=== PATIENT | male | born 1995 | race Native Hawaiian/Other Pacific Islander ===

== ENCOUNTER 2017-05-05 13:44 | Emergency (ER) | payer OTHER ==
[~2017-05-05] VITALS: Ht 162.6 cm; Wt 52.6 kg
[2017-05-05 13:51] VITALS: TEMP 98.3
[2017-05-05 16:17] VITALS: BP 128/78
== END 2017-05-05 16:17 | disposition home or self-care (01) ==
LOC: ED 13:44
PROC: 0HQGXZZ Repair Left Hand Skin, External Approach (ICD-10-PCS; principal; 2017-05-05)
DX: S61.215A Laceration without foreign body of left ring finger without damage to nail, initial encounter (principal); W26.0XXA Contact with knife, initial encounter; Y92.69 Other specified industrial and construction area as the place of occurrence of the external cause
CPT/HCPCS: 90471; 90715; 99283

== ENCOUNTER 2017-06-28 15:49 | Emergency (ER) | payer OTHER ==
[~2017-06-28] VITALS: Ht 162.6 cm; Wt 50.8 kg
[2017-06-28 17:49] LABS: PLATELET COUNT 240 K/uL (142-355)
[2017-06-28 18:04] LABS: POTASSIUM 3.6 mmol/L (3.6-5.2); SODIUM 136 mmol/L (136-145)
[2017-06-28 19:30] VITALS: BP 102/61; TEMP 97.9
== END 2017-06-28 19:30 | disposition home or self-care (01) ==
LOC: ED 15:49
PROVIDERS: Family Medicine
DX: K29.70 Gastritis, unspecified, without bleeding (principal); R11.2 Nausea with vomiting, unspecified
CPT/HCPCS: 36415; 80053; 82150; 83036; 83690; 85027; 86318; 96360; 99284

== ENCOUNTER 2017-07-14 12:21 | Outpatient (CLI) | payer OTHER | END 2017-07-14 12:27 | disposition short-term general hospital (02) | LOC: AMB 12:21 | DX: M79.662 Pain in left lower leg (principal); V49.49XA Driver injured in collision with other motor vehicles in traffic accident, initial encounter; Y92.488 Other paved roadways as the place of occurrence of the external cause | CPT/HCPCS: A0425; A0429 ==

== ENCOUNTER 2017-07-14 12:37 | Emergency (ER) | payer OTHER ==
[~2017-07-14] VITALS: Ht 162.6 cm; Wt 51.7 kg
[2017-07-14 12:45] VITALS: TEMP 98.5
[2017-07-14 15:25] VITALS: BP 132/74
== END 2017-07-14 15:26 | disposition home or self-care (01) ==
LOC: ED 12:37
DX: S86.912A Strain of unspecified muscle(s) and tendon(s) at lower leg level, left leg, initial encounter (principal); R51 Headache; V43.52XA Car driver injured in collision with other type car in traffic accident, initial encounter
CPT/HCPCS: 99283

== ENCOUNTER 2017-07-20 22:48 | Outpatient (CLI) | payer OTHER ==
[2017-07-20] MEDS ORDERED: ACID CONTROL20 MG PO (23:17)
[2017-07-20] MEDS ORDERED: BUSPIRONE10 MG PO (23:17)
== END 2017-07-20 22:57 | disposition short-term general hospital (02) ==
LOC: AMB 22:48
DX: F41.8 Other specified anxiety disorders (principal); R00.2 Palpitations; R42 Dizziness and giddiness
CPT/HCPCS: A0425; A0429

== ENCOUNTER 2017-07-20 22:59 | Emergency (ER) | payer OTHER ==
[~2017-07-20] VITALS: Ht 162.6 cm; Wt 52.2 kg
[2017-07-20 23:05] VITALS: TEMP 98.7
[2017-07-20] MEDS ORDERED: ACID CONTROL20 MG PO (23:17)
[2017-07-20] MEDS ORDERED: BUSPIRONE10 MG PO (23:17)
[2017-07-21 00:36] VITALS: BP 115/74
== END 2017-07-21 00:36 | disposition home or self-care (01) ==
LOC: ED 22:59
DX: F41.9 Anxiety disorder, unspecified (principal)
CPT/HCPCS: 96372; 99282; J2060

== ENCOUNTER 2018-06-17 18:57 | Emergency (ER) | payer OTHER ==
[~2018-06-17] VITALS: Ht 162.6 cm; Wt 48.1 kg
[~2018-06-17 18:57] MED LIST: ACID CONTROL20 MG PO; BUSPIRONE10 MG PO
[2018-06-17] MEDS ORDERED: ALPR0.2566 PO (19:15)
[2018-06-17 20:36] LABS: PLATELET COUNT 231 K/uL (142-355)
[2018-06-17 20:45] LABS: POTASSIUM 3.8 mmol/L (3.6-5.2)
[2018-06-17 22:16] VITALS: BP 122/85; TEMP 98.6
== END 2018-06-17 22:20 | disposition home or self-care (01) ==
LOC: ED 18:57
PROVIDERS: Internal Medicine
DX: R10.10 Upper abdominal pain, unspecified (principal); K21.9 Gastro-esophageal reflux disease without esophagitis
CPT/HCPCS: 36415; 80053; 81000; 82150; 83690; 85027; 96372; 99283; J1885; J2405

== ENCOUNTER 2018-06-21 08:17 | Outpatient (CLI) | payer OTHER ==
[~2018-06-21 08:17] MED LIST changes: +ALPR0.2566 PO
== END 2018-06-21 23:34 | disposition home or self-care (01) ==
LOC: RAD 08:17
DX: K52.9 Noninfective gastroenteritis and colitis, unspecified (principal)

== ENCOUNTER 2018-10-23 07:39 | Emergency (ER) | payer OTHER ==
[~2018-10-23] VITALS: Ht 162.6 cm; Wt 48.1 kg
[2018-10-23 07:52] VITALS: TEMP 97.9
[2018-10-23 09:32] VITALS: BP 108/76
== END 2018-10-23 09:32 | disposition home or self-care (01) ==
LOC: ED 07:39
PROC: 0H9QXZZ Drainage of Finger Nail, External Approach (ICD-10-PCS; principal; 2018-10-23)
DX: S60.141A Contusion of right ring finger with damage to nail, initial encounter (principal); W22.8XXA Striking against or struck by other objects, initial encounter
CPT/HCPCS: 99282

== ENCOUNTER 2019-09-26 08:04 | Outpatient (CLI) | payer OTHER | END 2019-09-26 22:42 | disposition home or self-care (01) | LOC: RESP 08:04 | DX: R00.2 Palpitations (principal); R06.02 Shortness of breath; R07.89 Other chest pain | CPT/HCPCS: 93306 ==

== ENCOUNTER 2019-11-21 16:18 | Emergency (ER) | payer OTHER ==
[~2019-11-21] VITALS: Ht 162.6 cm; Wt 45.4 kg
[2019-11-21 16:30] VITALS: TEMP 99.3
[2019-11-21 17:17] LABS: PLATELET COUNT 235 K/uL (142-355); POTASSIUM 4.1 mmol/L (3.6-5.2)
[2019-11-21 17:28] LABS: PARTIAL THROMBOPLASTIN TIME 25.8 SECONDS (24.5-33.6)
[2019-11-21 18:55] VITALS: BP 120/69
== END 2019-11-21 19:00 | disposition home or self-care (01) ==
LOC: ED 16:18
PROVIDERS: Hospitalist
DX: K59.09 Other constipation (principal); F13.239 Sedative, hypnotic or anxiolytic dependence with withdrawal, unspecified
CPT/HCPCS: 36415; 80053; 80307; 80320; 81000; 82150; 83690; 85027; 85610; 85730; 99283

== ENCOUNTER 2019-11-23 15:23 | Emergency (ER) | payer OTHER ==
[~2019-11-23] VITALS: Ht 162.6 cm; Wt 45.4 kg
[2019-11-23 16:40] VITALS: BP 112/75; TEMP 98.3
== END 2019-11-23 16:41 | disposition home or self-care (01) ==
LOC: ED 15:23
DX: K21.9 Gastro-esophageal reflux disease without esophagitis (principal)
CPT/HCPCS: 99282

== ENCOUNTER 2020-06-25 22:31 | Emergency (ER) | payer OTHER ==
[~2020-06-25] VITALS: Ht 162.6 cm; Wt 52.2 kg
[2020-06-25 23:20] VITALS: BP 107/72; TEMP 98.2
== END 2020-06-25 23:20 | disposition home or self-care (01) ==
LOC: ED 22:31
DX: F41.8 Other specified anxiety disorders (principal)
CPT/HCPCS: 93005; 96372; 99283; J1200